=== PATIENT | female | born 1940 | race Caucasian/White ===

== ENCOUNTER 2017-05-30 16:13 | Outpatient (CLI) | payer MEDICARE, BC | END 2017-05-30 16:14 | disposition home or self-care (01) | LOC: BICRAD 16:13 | PROVIDERS: ATTEND Internal Medicine Hematology & Oncology | DX: C34.32 Malignant neoplasm of lower lobe, left bronchus or lung (principal); J18.9 Pneumonia, unspecified organism; E53.8 Deficiency of other specified B group vitamins; T82.868D Thrombosis due to vascular prosthetic devices, implants and grafts, subsequent encounter; G62.0 Drug-induced polyneuropathy; M81.0 Age-related osteoporosis without current pathological fracture; R11.2 Nausea with vomiting, unspecified | CPT/HCPCS: 71046 ==

== ENCOUNTER 2017-12-25 09:50 | Outpatient (CLI) | payer MEDICARE, BC ==
--- NOTE | 2017-12-25 12:12 | RAD ---
CHEST PA AND LATERAL: History: 77-year-old female with history of dyspnea. Comparison: 07-28-10 FINDINGS: Left subclavian catheter and injection port. There are bilateral pleural thickening or pleural fluid changes with bibasilar interstitial and alveolar pulmonary parenchymal changes in the mid and lower l hina zones. These are more dense and confluent in nature than on the prior 2011 study. No intervening films available for comparison. IMPRESSION: Extensive bilateral mid and lower lung zone pleural and parenchymal changes, more dense and more prom inent and more confluent in appearance than on prior 2011 study. This may well represent an extensive chronic component, although certainly bilateral lower lobe pneumonia and/or pneumonitis and even und erlying neoplasm are all considered possibilities. Biapical pleural thickening, worsening when compar ed to the prior study. Correlate clinically. Consider short term follow up if there is concern for ac [place] pneumonia. POS: [facility]
== END 2017-12-25 09:51 | disposition home or self-care (01) ==
LOC: RAD 09:50
PROVIDERS: ATTEND Internal Medicine Critical Care Medicine
DX: R06.00 Dyspnea, unspecified (principal); J92.9 Pleural plaque without asbestos
CPT/HCPCS: 71046